=== PATIENT | female | born 1960 | race Hispanic/Latino ===

== ENCOUNTER 2016-10-16 10:19 | Emergency (ER) | payer MEDICARE ==
[2016-10-16] MEDS ORDERED: Oxycodone/Acetaminophen 5/325 mg Tab PO STA (11:13)
--- NOTE | 2016-10-16 11:17 | ED PDOC ---
Arrival/HPI - General Chief Complaint: Dental Pain Time Seen by Provider: 10/16/16 10:56 Historian: Patient - History of Present Illness Narrative History of Present Illness (Text): 10/16/16 11:39 Patient presents with to the ER for 1 day h/o swelling to the R side of her cheek which developed this morning associated with R sided upper dental pain - R upper 2nd molar. States that she saw a dentist 1-2 months ago, due to a fractured tooth to the R 2nd upper molar, was advised that she needed a root canal, but never had the procedure done and has not had any f/u ever since. Denies any fever, chills, headache, ear pain, sore throat, cough, dyspnea. Has no other complaints. Past Medical History - Provider Review Nursing Documentation Reviewed: Yes - Travel History If Yes, travel location?: [place] - Infectious Disease Hx of Infectious Diseases: None - Reproductive Menopause: Yes - Psychiatric Hx Depression: Yes Hx Substance Use: No - Anesthesia Hx Anesthesia: No Family/Social History - Physician Review Nursing Documentation Reviewed: Yes Family/Social History: No Known Family HX Smoking Status: Unknown If Ever Smoked Hx Alcohol Use: Yes Frequency of alcohol use: Socially Hx Substance Use: No Allergies/Home Meds Allergies/Adverse Reactions: Allergies No Known Allergies Allergy (Verified 10/16/16 10:47) Home Medications: Home Meds Medication Instructions Recorded Confirmed FLUoxetine Elix [Prozac] 20 mg PO DAILY 10/16/16 10/16/16 clonazePAM [clonAZEPAM] 0.5 mg PO BID 10/16/16 10/16/16 Review of Systems - Review of Systems Constitutional: Normal. absent: Fatigue, Weight Change Eyes: Normal. absent: Vision Changes, Photophobia ENT: Normal, Other (intermittent toothache). absent: Hearing Changes, Tinnitus Respiratory: Normal. absent: SOB, Cough Physical Exam Vital Signs Reviewed: Yes Vital Signs Temp Pulse Resp BP Pulse Ox 10/16/16 11:25 98.1 F 76 18 125/71 99 10/16/16 10:42 98.4 F 82 16 129/76 97 Appearance: Positive for: Well-Appearing, Non-Toxic, Comfortable Pain Distress: Mild Mental Status: Positive for: Alert and Oriented X 3 - Systems Exam Head: Present: Atraumatic, Normocephalic, Other (+ moderate edema to the R side of the cheek with no abscess, no erythema, no induration, no fluctuance ) Pupils: Present: PERRL Extroacular Muscles: Present: EOMI Conjunctiva: Present: Normal Ears: Present: Normal Mouth: Present: Moist Mucous Membranes, Other (gingiva is normal with no edema, no erythema, no abscess. + fractured R upper 2nd moral with tenderness to percussion.). No: Drooling, Trismus Pharnyx: Present: Normal. No: ERYTHEMA, EXUDATE, TONSILS ENLARGED, Peritonsilar Swelling, Uvular Deviation, Muffled/Hoarse Voice, Strider Nose (External): Present: Atraumatic Nose (Internal): Present: Normal Inspection Neck: Present: Normal Range of Motion. No: Meningeal Signs, MIDLINE TENDERNESS , Lymphadenopathy Medical Decision Making ED Course and Treatment: 10/16/16 11:14 56 yo F presents with swelling to the R side of her cheek which developed this morning associated with R sided upper dental pain. Patient given clindamycin 300 mg po and percocet 1 tab po. Based on history, exam and diagnostic results plan will be for outpatient follow up with the dentist. Rx Provided. Patient states she fully agrees with and understands discharge instructions. States that she agrees with the plan and disposition. Verbalized and repeated discharge instructions and plan. I have given the patient opportunity to ask any additional questions. Follow up with the dentist in 1-2 days without fail. Advised to take medication as prescribed. Return to the emergency room at any time for any new or worsening symptoms. 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 Disposition/Present on Arrival - Present on Arrival Any Indicators Present on Arrival: No History of DVT/PE: No History of Uncontrolled Diabetes: No Urinary Catheter: No History of Decub. Ulcer: No History Surgical Site Infection Following: None - Disposition Have Diagnosis and Disposition been Completed?: Yes Diagnosis: Dental infection, Toothache Disposition: HOME/ ROUTINE Disposition Time: 11:16 Patient Plan: Discharge Patient Problems: Current Active Problems Problem Status Diagnosed Dental infection Acute Toothache Acute Condition: GOOD Discharge Instructions (ExitCare): Dental Abscess (ED), Toothache (ED) Print Language: [place] Additional Instructions: Thank you for letting us take care of you today. You were treated for toothache , dental infection. The emergency medical care you received today was directed at your acute symptoms. If you were prescribed any medication, please fill it and take as directed. It may take several days for your symptoms to resolve. Return to the Emergency Department if your symptoms worsen, do not improve, or if you have any other problems. Please contact the dental clinic in 2 days for re-evaluation and follow up. Bring any paperwork you were given at discharge with you along with any medications you are taking to your follow up visit. Our treatment cannot replace ongoing medical care by a primary care provider (PCP) outside of the emergency department. Thank you for allowing the [facility] team to be part of your care today. Prescriptions: Clindamycin [Cleocin] 300 mg PO TID #30 cap oxyCODONE/Acetaminophen [Percocet 5/325 mg Tab] 1 ea PO QID #12 tab Referrals: [facility] [employer] [Outside] - Follow up with primary [facility] [Outside] - Follow up with primary Forms: WORK NOTE
[2016-10-16 11:26] VITALS: TEMP 98.1; O2SAT 99
[2016-10-16 11:57] VITALS: BP 125/72; PULSE 72; RESP 16
== END 2016-10-16 11:56 | disposition home or self-care (01) ==
LOC: ED 10:19
DX: K04.7 Periapical abscess without sinus (principal); K08.89 Other specified disorders of teeth and supporting structures